=== PATIENT | female | born 1995 ===

== ENCOUNTER 2017-05-15 09:22 | Inpatient (IN) | payer MEDICAID, OTHER ==
[2017-05-15] MEDS ORDERED: Lactated Ringer's 1,000 ML IV SCH (11:45)
[2017-05-15] MEDS ORDERED: Oxytocin 30 UNIT 30 UNITS/500 ML BAG IV SCH (12:00)
[2017-05-15 12:38] LABS: BASO # 0.1 K/uL (0.0-0.2); BASO % 0.8 % (0.0-2.0); EOS % 0.3 % (0.0-4.0); HEMATOCRIT 33.4 % (34.0-47.0); LYMPH # 2.1 K/uL (1.0-4.3); LYMPH % 17.2 % (20.0-40.0); MEAN CELL VOLUME 84.2 fL (81.0-99.0); MEAN CORPUSCULAR HGB CONC 33.3 g/dL (33.0-37.0); MEAN PLATELET VOLUME 10.5 fL (7.2-11.7); MONO # 0.9 K/uL (0.0-0.8); MONO % 7.4 % (0.0-10.0); RED CELL DISTRIBUTION WIDTH 14.5 % (11.5-14.5); WHITE BLOOD COUNT 12.1 K/uL (4.8-10.8)
[2017-05-15 12:50] LABS: CHLORIDE 101 mmol/L (98-107); POTASSIUM 3.5 mmol/L (3.6-5.2); SODIUM 132 mmol/L (132-148)
[2017-05-15 12:52] LABS: ALB/GLOB RATIO 0.9 (1.0-2.1); AST/SGOT 26 U/L (14-36); BILIRUBIN,TOTAL 0.2 mg/dL (0.2-1.3); BLOOD UREA NITROGEN 7 mg/dL (7-17); CARBON DIOXIDE 20 mmol/L (22-30); GFR AFRICAN-AMERICAN > 60; TOTAL PROTEIN 7.6 g/dL (6.3-8.3)
[2017-05-15 12:53] LABS: ALKALINE PHOSPHATASE 230 U/L (38-126); ALT/SGPT 30 U/L (9-52); GLUCOSE,RANDOM 64 mg/dL (65-105)
[2017-05-15 12:58] LABS: RBC URINE < 1 /hpf (0-3); URINE BACTERIA OCC (<OCC); URINE BILIRUBIN NEGATIVE (NEGATIVE); URINE BLOOD 3+ (NEGATIVE); URINE COLOR Yellow (YELLOW); URINE GLUCOSE (UA) NORMAL (Normal); URINE KETONE NEGATIVE (NEGATIVE); URINE LEUKOCYTE ESTERASE TRACE Leu/uL (Negative); URINE PROTEIN NEGATIVE (NEGATIVE); URINE UROBILINOGEN NORMAL mg/dL (0.2-1.0); WBC URINE 7 /hpf (0-5)
[2017-05-15] MEDS ORDERED: Bupivacaine 0.125%/FentaNYL 200 ML EPI ONE (13:10)
[2017-05-15] MEDS ORDERED: Lidocaine 2% Inj (20ml) ONE ×2 (13:25→14:37)
--- NOTE | 2017-05-15 13:32 | OBADHP ---
Datetime: 05/15/2017 13:29 FHR - Baseline A Provider: 120 Membranes, Provider: Intact Contraction Comments Provider: q 2 -3 Gestation - Est Wks by US: 38.4 Vital Signs Provider: Reviewed; Within Normal Limits NICHD Variability Prov Fetus A: Moderate 6-25bpm NICHD Accel Fetus A IP Provider: 15X15 FHR Category Provider Fetus A: Category I NICHD Decel Fetus A IP Provider: None Dilatation, Provider: 5 Datetime: 05/15/2017 10:43 Admit Comment, IP Provider: Patient is a 21 year old at 38w5d ARTHUR 05/25/17 by 24w5d US perfor med on 02/07/17 presents to L+D for uterine contractions that started at 3am this morning. Contraction s are getting stronger and are approximately 4 minutes apart. Also states that when she went to wipe this morning, she felt some loss of fluid with pink mucosy discharge. Endorses FM, denies VB. She goe s to [facility] in [place] for care. Last visit was TuesdayMay 13. issues: Denies OB Hx: 1. 2009 TOP 2. 2011 at 39 weeks, 7lbz 10 oz, no complications 3. 2014 TOP 4. 2015 TOP 5. 2016 TOP 6. 2016 SAB 7. Current [employer] Hx: LMP 07/23/16 Triad: 13 x 28-30 days x 4 days Denies Hx of fibroids, ovarian cysts, STIs Hx of LGSIL on pap smear 09/06/16 Allergies: Latex, strawberries Medications: PNV Medical History: Asthma (last used inhaler in 1st grade) Surgical History: Denies Social History: Smoked 2-3 cig/day prior to , denies alcohol, drug use; lives with mother and daughter, on Maternity leave from work Family History: Mother - age 50, history of anal cancer; Father age 50, history of heart disease PE: see above A/P: 21 year old at 38 weeks 5 days presents in early labor 1. Stable, afebrile 2. CEFM and TOCO: minimal variability on initial presentation, currently tracing is reactive 3. Will have patient ambulate for 1 hour and reassess for cervical change 4. Plan d/w attending OB Addendum: Patient back in the room. Cervical exam /-2. Will admit to L+D and start pitocin. Admission labs, LR @ 125cc/hr, GBS negative, no need for abx at this time. Anticipate vaginal delive ry. Plan d/w attending. Olga Dick DO PGY-1 agree with above pt seen adn examined both tiems with residnet agree with above repeturn exam, negaiteve pooling, 5cm pain increasin requesting pain medicaoin Pelvic Type - PN: Adequate Extremities - PN: Normal Abdomen - PN: Normal Back - PN: Normal Breast - PN: Not Done Lungs - PN: Normal Heart - PN: Normal Thyroid - PN: Not Done Neurologic - PN: Not Done HEENT - PN: Normal General - PN: Normal Comments, ACOG Physical Exam: VSS Gen: AAOx3, NAD Abd: Soft, gravid Ext: No clubbing, cyanosis, edema SSE: Nitrazine negative, no pooling SVE: 50/-2 at 10:10am EFM: 130, mod variability, +accels, - decels TOCO: q3-4 min Pool Provider: Negative Nitrazine Provider: Negative IP Hx Assessment: The History has been Reviewed and is Current IP Chief Complaint: Uterine contractions Effacement, Provider: 50 Station, Provider: -2 Genitourinary Exam: Normal DTRs - PN: Normal EGA AdmitDate IP: 38.4 IP Adm Impression: Term, intrauterine IP Admit Plan: Admit to unit
[2017-05-15] MEDS ORDERED: Oxytocin 30 UNIT 30 UNITS/500 ML BAG IV ONE (13:38)
--- NOTE | 2017-05-15 13:46 | OBPN ---
Datetime: 05/15/2017 13:29 IP Progress Impression: Normal progression of labor IP Progress Plan: Continue present management Membranes, Provider: Intact Contraction Comments Provider: q 2 -3 FHR - Baseline A Provider: 120 Gestation - Est Wks by US: 38.4 IP Progress Note Comment: pt seen and evaouat c/o pain, requesting peidurl. denies lof, vb, +FM VSS VE: 5cm EFM: Cta I TOCO: q 2-3 min A/P @ 38.4 wks GA in active labor, for augmentation -cont pitocon as per protocl -gbs negateive -epidural anesthesis evlautin Addendum: Anesthesia requesting lidocane 2% local anesthetic for epdiural procedure, Nurse Susie was able to retrieve from [facility] as [facility] Monroe [facility] Vital Signs Provider: Reviewed; Within Normal Limits NICHD Accel Fetus A IP Provider: 15X15 FHR Category Provider Fetus A: Category I NICHD Variability Prov Fetus A: Moderate 6-25bpm Dilatation, Provider: 5 NICHD Decel Fetus A IP Provider: None Datetime: 05/15/2017 10:43 Pool Provider: Negative Nitrazine Provider: Negative Effacement, Provider: 50 Station, Provider: -2
[2017-05-15] MEDS ORDERED: Oxycodone/Acetaminophen 5/325 mg Tab PO PRN (14:47)
[2017-05-15] MEDS ORDERED: Benzocaine/Menthol 20%-0.5% Topical Spray (60 ml) TOP PRN (14:47)
--- NOTE | 2017-05-15 14:48 | OBDS ---
MATERNAL INFORMATION Provider Comments: pt was fully dilated and pushing, atrumatic, spontaneous deliveyr of head, tight nuchal cord x 1, reduced. Atraumatic, spontaneus elivery of anterior followed by posterior shoulder f ollowed by deliery of body. both oral and nasal passages of the baby were bulb suctioned. umbilical c ord calmped and cut. baby hadned to awaiting pediatricina. cord blood adn cord gases collected and se nt x 2. Spontaneous deliveyr of intact placenta with membranes. funus fimr, bimanual massage. Good he mostasis, intact pereinum. no complcaitons live male infnat agpars 9,9 weight of 6lb 10 ounces ebl 400ml LABOR SUMMARY EDC: 05/25/2017 00:00 No. Babies in Womb: 1 MEMBRANES Membranes Rupture Method: Artificial Amniotic Fluid Color: Clear Amniotic Fluid Amount: Small Amniotic Fluid Odor: Normal STAGES OF LABOR Stage 3 hrs: 0 Stage 3 min: 6 VAGINAL DELIVERY Laceration Repair Note: intact perineum BABY A INFORMATION Infant Delivery Date/Time: 05/15/2017 14:35 Method of Delivery: Vaginal Born in Route : No : N/A Forceps: N/A Vacuum Extraction: N/A Shoulder Dystocia : No SHOULDER DYSTOCIA BABY A Delivery Date/Time: 05/15/2017 14:35 PRESENTATION/POSITION BABY A Presentation: Cephalic Cephalic Presentation: Vertex Vertex Position: Left Occipital Anterior Breech Presentation: N/A PLACENTA INFORMATION BABY A Placenta Delivery Time : 05/15/2017 14:41 Placenta Method of Delivery: Spontaneous Placenta Status: Delivered SCORES BABY A Heart Rate 1 min: >100 bpm Resp Effort 1 min: Good Cry Reflex Irritability 1 min: Cough or Sneeze or Pulls Away Muscle Tone 1 min: Active Motion Color 1 min: Body [place], Extremities Blue SCORE 1 MIN: 9 Heart Rate 5 min: >100 bpm Resp Effort 5 min: Good Cry Reflex Irritability 5 min: Cough or Sneeze or Pulls Away Muscle Tone 5 min: Active Motion Color 5 min: Body [place], Extremities Blue SCORE 5 MIN: 9 INFORMATION BABY A Gestational Age at Delivery: 38.4 Gestational Status: Term Infant Outcome : Liveborn Infant Condition : Stable Sex: Female IDENTIFICATION/MEDS BABY A ID Band Number: [id number] ID Band Location: Left Leg; Left Arm Sensor Applied: Yes Sensor Number: [id number] Sensor Location : Cord Clamp WEIGHT/LENGTH BABY A Birthweight (gms): 3020 Infant Weight (lb): 6 Infant Weight (oz): 10 Infant Length Inches: 19.00 Length cms: 48.3 CORD INFORMATION BABY A No. Cord Vessels: 3 Nuchal Cord : Around Neck x1, Tight Nuchal Cord Other: n/a True Knot: n/a Cord Blood Taken: Yes Banking/Donate Info: n/a Suction: Mouth; Nose
[2017-05-15] MEDS ORDERED: Oxytocin 10 Units/ml Inj IM ONE (15:11)
[2017-05-15 16:04] LABS: CORD BLD GAS BE -2.6 mmol/L (0-10); CORD BLD GAS HCO3 22.1 mmol/L (2.5-3.5); CORD BLD GAS PH 7.39 (7.28-7.78); CORD BLOOD GAS PCO2 36 mm/HG (49-57)
[2017-05-16 09:00] LABS: BASO % 0.3 % (0.0-2.0); EOS # 0.1 K/uL (0.0-0.7); EOS % 0.4 % (0.0-4.0); LYMPH # 2.4 K/uL (1.0-4.3); LYMPH % 18.7 % (20.0-40.0); MEAN CELL VOLUME 84.7 fL (81.0-99.0); MEAN CORPUSCULAR HEMOGLOBIN 27.8 pg (27.0-31.0); MEAN CORPUSCULAR HGB CONC 32.8 g/dL (33.0-37.0); MEAN PLATELET VOLUME 9.7 fL (7.2-11.7); MONO # 0.8 K/uL (0.0-0.8); MONO % 6.5 % (0.0-10.0); RED CELL DISTRIBUTION WIDTH 14.8 % (11.5-14.5); WHITE BLOOD COUNT 12.6 K/uL (4.8-10.8)
[2017-05-16 09:30] LABS: CHLORIDE 100 mmol/L (98-107); POTASSIUM 3.7 mmol/L (3.6-5.2); SODIUM 132 mmol/L (132-148)
[2017-05-16 09:33] LABS: BLOOD UREA NITROGEN 6 mg/dL (7-17); CALCIUM 8.7 mg/dl (8.6-10.4); CARBON DIOXIDE 25 mmol/L (22-30); GFR AFRICAN-AMERICAN > 60; GLUCOSE,RANDOM 67 mg/dL (65-105)
--- NOTE | 2017-05-16 14:30 | OBPPN ---
Datetime: 05/16/2017 07:22 PP Pain Prov: Within normal limits PP Nausea Prov: Denies PP Flatus Prov: No PP BM Prov: No PP Heart Prov: Normal PP Lungs Prov: Normal PP Lochia Prov: Normal PP Extremities Prov: Normal PP Comments Phys Exam Prov: fudus below umblicus ext no edema,no calf ten fundus below umblicus PP Impression Prov: Normal progression PP Plan Prov: Continue present management PP Progress Note Prov: Patient seen and examined at bedside. Per nursing no acute events overnight. Patient is doing well, c/o back and lower abdominal cramping. Pain is controlled. Lochia is mild. Pat ient is ambulating and tolerating diet. Urinating without difficulty. Denies passing flatus or BM. Br east feeding. Denies headaches, dizziness, cp, palpitations, sob, urinary symptoms. VS: 100/68 87 97.8 Gen: AAOx3 Abd: soft, fundus firm at umbilicus Ext: No clubbing, cyanosis, edema Labs: 12.1>11.1/33.4<243 F/U am CBC O positive Rubella Immune A/P: 21 year old at 38w5d s/p PPD#1 1. Stable, afebrile 2. Pain control - motrin and tylenol prn 3. F/U am CBC 4. Encourage ambulation and hydration 5. Encourage breast feeding 6. Male - circ 7. Anticipate d/c home tomorrow 8. Plan d/w attending Olga Dick DO PGY-1 Dr murray agrees Vital Signs Provider PP: Reviewed; Within Normal Limits
[2017-05-17 11:52] VITALS: BP 99/65; PULSE 59; RESP 18; TEMP 97.3; O2SAT 97
[2017-05-17] MEDS ORDERED: Influenza Vaccine 60 mcg/0.5 mL SYR (4YR UP) IM ONE (15:45)
--- NOTE | 2017-05-17 21:42 | OBDCSUM ---
Datetime: 05/17/2017 13:00 Discharged to, Provider: Home Follow up at, Provider: clinic Disch Instr Activity: Normal activity Disch Instr Diet: Regular Discharge Instructions, Provider: Routine instructions given Discharge Diagnosis, Provider: Term Delivered Discharge Time: 05/17/2017 14:00 Follow up in weeks, Provider: Call for appt. in 6 weeks Disch Referrals: None Disch Activity Restrictions: No exercising; No lifting; No driving; Minimize walking; Minimize stair -climbing; No sexual activity; Nothing in vagina - [place], tampons, douche Discharge Comment, Provider: go to er if you have fever, severe pain, heavy bleeding or any other pr oblems Discharge Diagnosis Prov Other: s/p vaginal delivery
--- NOTE | 2017-05-17 21:42 | OBPPN ---
Datetime: 05/17/2017 07:58 PP Pain Prov: Within normal limits PP Nausea Prov: Denies PP Flatus Prov: Yes PP BM Prov: No PP Impression Prov: Normal progression PP Plan Prov: Continue present management; Discharge PP Progress Note Prov: Patient seen and examined at bedside. Per nursing no acute events overnight. Patient is doing well, pain is controlled. Lochia is mild. Ambulating and tolerating diet. Urinating without difficulty. Passing flatus, no BM. Breast feeding. Denies headaches, dizziness, cp, palpitati ons, sob, urinary symptoms. VS: 100/69 75 98.5 Gen: AAOx3 Abd: Soft, fundus firm below umbilicus Ext: No clubbing, cyanosis, edema; no calf tenderness Labs: 12.1>11.1/33.4<243 12.6>10.2/31.0<245 O positive Rubella immune A/P: 21 year old at 38w4d s/p PPD#2 1. Stable, afebrile 2. Pain control - tylenol and motrin prn 3. Encourage ambulation and hydration 4. Encourage breast feeding 5. Continue routine care 6. Discharge home today - pelvic rest x 6 weeks, f/u with clinic in 6 weeks 7. Plan d/w attending Olga Dick DO PGY-1 patient examined agree with resident exam, assessment and plan Vital Signs Provider PP: Reviewed; Within Normal Limits
== END 2017-05-17 16:20 | disposition home or self-care (01) | DRG 373 ==
LOC: C.EROB 09:22 → C.4D 11:45 → C.4M 16:34
PROVIDERS: ADMIT Obstetrics & Gynecology; ATTEND Obstetrics & Gynecology
PROC: 10E0XZZ Delivery of Products of Conception, External Approach (ICD-10-PCS; principal; 2017-05-15)
PROC: 10907ZC Drainage of Amniotic Fluid, Therapeutic from Products of Conception, Via Natural or Artificial Opening (ICD-10-PCS; 2017-05-15)
DX: O69.1XX0 Labor and delivery complicated by cord around neck, with compression, not applicable or unspecified (principal); O26.23 Pregnancy care for patient with recurrent pregnancy loss, third trimester; Z37.0 Single live birth; Z3A.38 38 weeks gestation of pregnancy; Z87.891 Personal history of nicotine dependence